=== PATIENT | female | born 1935 | race Caucasian/White ===

== ENCOUNTER 2017-05-26 15:44 | Emergency (ER) | payer MEDICARE, MEDICAID ==
[2017-05-26 15:58] VITALS: BP 175/70; PULSE 75; RESP 18; TEMP 99.8; O2SAT 100
--- NOTE | 2017-05-26 16:20 | ED PDOC ---
HPI: General Adult Time Seen by Provider: 05/26/17 16:13 Chief Complaint (Nursing): Flu-like Symptoms Chief Complaint (Provider): Flu-like Symptoms History Per: Patient History/Exam Limitations: no limitations Onset/Duration Of Symptoms: Days (x 4) Current Symptoms Are (Timing): Still Present Additional Complaint(s): Ms. Ramachandran is a 82 year old female, with a history of asthma and hypertension, who presents to the emergency department complaining of cough for 3 days and fever for 2 days. Patient states she can breath normally, but has a sore throat. Denies vomiting. Patient reports she cannot get flu shot due to having previous allergic reactions. Patient states she may be allergic to Tamiflu and "does not want to risk it". (+) Allergies include Penicillin, Codeine, Iodine, Shrimp. PMD: No Provider Past Medical History Reviewed: Historical Data, Nursing Documentation, Vital Signs Vital Signs: Last Vital Signs Temp 99.8 F H 05/26/17 15:55 Pulse 75 05/26/17 15:55 Resp 18 05/26/17 15:55 BP 175/70 H 05/26/17 15:55 Pulse Ox 100 05/26/17 18:16 - Medical History PMH: Asthma, HTN, Hypercholesterolemia - Surgical History Surgical History: Cholecystectomy - Family History Family History: States: Unknown Family Hx - Home Medications Home Medications: Ambulatory Orders Medication Instructions Recorded Docusate Sodium [Colace] 100 mg PO BID #30 sgl 10/05/14 Polyethylene Glycol 3350 [Miralax] 17 gm PO DAILY PRN #1 packet 10/05/14 DiphenhydrAMINE [Benadryl] 1 - 2 tab PO Q6 PRN #24 cap 05/26/17 Oseltamivir Phosphate [Tamiflu] 75 mg PO BID #9 capsule 05/26/17 predniSONE [predniSONE Tab] 3 tab PO DAILY #15 tab 05/26/17 - Allergies Allergies/Adverse Reactions: Allergies Allergy/AdvReac Type Severity Reaction Status Date / Time aspirin Allergy RASH Verified 05/26/17 16:00 codeine Allergy RASH Verified 05/26/17 15:59 Iodine and Iodide Containing Allergy RASH Verified 05/26/17 16:00 Produc Penicillins Allergy RASH Verified 05/26/17 15:59 shrimp Allergy REDNESS Verified 05/26/17 16:00 Review of Systems ROS Statement: Except As Marked, All Systems Reviewed And Found Negative Constitutional: Positive for: Fever ENT: Positive for: Throat Pain Respiratory: Positive for: Cough. Negative for: Shortness of Breath Physical Exam - Reviewed Nursing Documentation Reviewed: Yes Vital Signs Reviewed: Yes - Physical Exam Appears: Positive for: Well, Non-toxic Head Exam: Positive for: ATRAUMATIC, NORMAL INSPECTION, NORMOCEPHALIC Skin: Positive for: Normal Color, Warm, Dry Eye Exam: Positive for: Normal appearance, EOMI ENT: Positive for: Normal ENT Inspection. Negative for: Pharyngeal Erythema Neck: Positive for: Normal Cardiovascular/Chest: Positive for: Regular Rate, Rhythm Respiratory: Positive for: Normal Breath Sounds (Lungs clear to auscultation). Negative for: Respiratory Distress Gastrointestinal/Abdominal: Positive for: Normal Exam Extremity: Positive for: Normal ROM. Negative for: Deformity Neurologic/Psych: Positive for: Alert, Oriented. Negative for: Motor/Sensory Deficits - ECG O2 Sat by Pulse Oximetry: 100 (RA) Pulse Ox Interpretation: Normal Medical Decision Making Medical Decision Making: Time: 16:12 - Chest X-Ray - Influenza A B Stat (+) for influenza b Time: 16:42 Chest X-Ray FINDINGS: LUNGS: No evidence of new infiltrate or consolidation in the lungs. PLEURA: No significant pleural effusion identified. No pneumothorax apparent. CARDIOVASCULAR: Normal. OSSEOUS STRUCTURES: No significant abnormalities. VISUALIZED UPPER ABDOMEN: Normal. OTHER FINDINGS: None. IMPRESSION: No evidence of new infiltrate or consolidation in the lungs. Time: 17:22 - Tamiflu Cap Scribe Attestation: Documented by Sander Oneil, acting as a scribe for Kenia Palm PA-C. Provider Scribe Attestation: All medical record entries made by the Scribe were at my direction and personally dictated by me. I have reviewed the chart and agree that the record accurately reflects my personal performance of the history, physical exam, medical decision making, and the department course for this patient. I have also personally directed, reviewed, and agree with the discharge instructions and disposition. Disposition - Clinical Impression Clinical Impression: Influenza - Patient ED Disposition Is Patient to be Admitted: No - Disposition Disposition: Routine/Home Disposition Time: 19:50 Condition: FAIR Prescriptions: DiphenhydrAMINE [Benadryl] 1 - 2 tab PO Q6 PRN #24 cap PRN Reason: Itching / Pruritus Oseltamivir Phosphate [Tamiflu] 75 mg PO BID #9 capsule predniSONE [predniSONE Tab] 3 tab PO DAILY #15 tab Instructions: Influenza (ED) Forms: [facility] (Chinese)
--- NOTE | 2017-05-26 17:22 | RAD ---
HISTORY: cough COMPARISON: Comparison is made with 04/10/2009 TECHNIQUE: Chest PA and lateral FINDINGS: LUNGS: No evidence of new infiltrate or consolidation in the lungs. PLEURA: No significant pleural effusion identified. No pneumothorax apparent. CARDIOVASCULAR: Normal. OSSEOUS STRUCTURES: No significant abnormalities. VISUALIZED UPPER ABDOMEN: Normal. OTHER FINDINGS: None. IMPRESSION: No evidence of new infiltrate or consolidation in the lungs.
== END 2017-05-26 20:18 | disposition home or self-care (01) ==
LOC: H.ER 15:44
DX: J11.1 Influenza due to unidentified influenza virus with other respiratory manifestations (principal); E78.00 Pure hypercholesterolemia, unspecified; I10 Essential (primary) hypertension; Z88.0 Allergy status to penicillin; J45.909 Unspecified asthma, uncomplicated